=== PATIENT | female | born 1970 | race Caucasian/White ===

== ENCOUNTER 2025-03-24 07:49 | Outpatient (CLI) | payer OTHER, SELFPAY ==
--- OUTSIDE RECORDS SUMMARY | 2025-03-24 07:54 | XMS_ITS | Continuity of Care Document ---
Author Organization [facility] Address [address] [facility] [place] [address] Assessment No assessment recorded. Plan of Treatment Reminders Order Date Submit Date Provider Last Modified By Organization Details Last Modified Time Details Appointments None recorded. Lab None recorded. Referral gastroente rologist referral 2024 025 [email or web address] 5 Ramu Marr MD, [address] [place] [address] , [address], [address], 5 14:41:28 Procedures None recorded. Surgeries None recorded. Imaging MAMMO, screening, bilateral 2024 025 lars Hoffman (Centralized Scheduling), [address] [place] [address] , [place], [address], 5 11:32:40 LDCT, chest, for lung cancer screening 2024 025 [facility], [address] [place] [address], [place], [address], 5 04:05:09 Medication Orders nicotine 21 mg/24 hr daily transderma l patch 2024 025 [facility], [address] [facility], [place], [address], 5 09:32:49 nicotine (polacrile x) 4 mg gum 2024 025 [facility] [address] [facility], [place], [address], 09:32:55 Patient TargetsNo targets recorded. Patient Instructions Encounter Date Encounter Id Patient Instructions Last Modified By Organization Details Last Modified Time 02/03/2025 [id number] mammogram: about this test [email or web address] Not available 02/03/2025 13:00:53 smoking cessatio n counseling, greater than 3 minutes up to 10 minutes* [email or web address] Not available 02/15/2025 17:31:24 All questions answered and pt/guardian satisfied with treatment plan. Call with changes RTC or ED if symptoms change or worsen Keep next interval checkup Cont. chronic meds as prescribed Chronic conditions are stable Discussed natural and expected course of this diagnosis and need to alert the office if symptoms do not follow expected course or if any worsens [email or web address] Not available 02/03/2025 13:02:19 Reason for Referral Dental Coordinator Referral for Screening for malignant neoplasm of colon Referring Physician: Glynn Shin, Family Medicine, Encounter Date: 02/03/2025 Results Created Date Observation Date Name Description Value Unit Range Abnormal Flag Note LastModifiedBy Organization Detail LastModifiedTime 03/18/20 25 03/18/2025 jose roberto cheung am No observ ation record ed. [address], [address], 03/18/2025 10:01:50 03/22/20 25 03/18/2025 jose roberto cheung am No observ ation record ed. [address], [address], 03/23/2025 08:10:00 Result Notes None recorded. Problems Name Problem SNOMED Code Status Onset Date Resolution Date Notes Provider Name and Address Organization Details Recorded Time Abnormal vaginal bleeding 450145569 Active Sanjay Posey, RN [address], [place], [address] , [facility] - [facility] 8 15:04:51 Acute posthemorr hagic anemia 212161436 Active Sanjay Posey RN [address], [place], [address] , [place] - [facility] 8 15:04:51 Disorder of intestine 58924525 Active 2016 Sanjay Posey RN [address], [place], [address] , [place] - [facility] 8 15:04:51 Acute sinusitis 00684352 Active 2023 Ciera Simpson APRN [address], [place], [address] , [place] - [facility] 4 10:40:09 Insect bite of upper limb 925011294 Active 2024 Glynn Shin PA-C [address], [place], [address] , [place] - [facility] 5 14:47:01 Tobacco dependence caused by cigarettes 3996479454613 9107 Active 2024 Glynn Shin PA-C [address], [place], [address] , [place] - [facility] 5 12:56:18 Vitamin D deficiency 37504745 Active 2024 Glynn Shin PA-C [address], [place], [address] , [place] - [facility] 5 13:04:39 Problem Notes None recorded. Procedures Surgical History Date Name Laterality Status Provider Name and Address Organization Details Recorded Time 0 Systolic B/P less than 130 mm Hg completed Ly Arnoldo [place] - [facility] 09/05/2020 16:01:43 0 Diastolic B/P 80-89 mm Hg completed Ly Arnoldo [place] - [facility] 09/05/2020 16:01:47 9 Endometrial Biopsy completed Anne Marie Metcalf MD [address], [place], [address], [place] - [facility] 12/12/2018 10:06:14 9 Endometrial Biopsy completed Amanda Rivas [place] - [facility] 12/18/2018 08:01:39 8 Dilation and Curettage, sharp completed Amanda Rivas [place] - [facility] 09/08/2018 13:52:53 8 Date of Last Pap Smear completed Amanda Rivas [place] - [facility] 12/17/2017 15:07:55 2 Tubal Ligation completed Amanda Rivas [place] - [facility] 12/13/2017 14:28:36 Surgical revision intestine completed Earlene Branham [place] - [facility] 10/25/2016 16:32:38 Imaging Results None recorded. Procedure Notes None recorded. Medical Equipment None Reported. Allergies No known drug allergies Medications Name Sig Start Date Stop Date Status Note LastModified by Organization Details LastModified Time doxycycli ne hyclate 100 mg capsule TAKE ONE (1) CAPSULE TWICE A DAY BY ORAL ROUTE FOR 10 DAYS. 02/03 completed Not Available Not Available Not Available azithromy isis 250 mg tablet TAKE TWO (2) TABLETS (500 MG) BY ORAL ROUTE ONCE DAILY FOR ONE (1) DAY THEN ONE (1) TABLET (250 MG) BY ORAL ROUTE ONCE DAILY FOR FOUR (4) DAYS 01/15 completed Not Available Not Available Not Available valacyclo vir 1 gram tablet Take 1 tablet 3 times a day by oral route for 7 days. 06/10 completed Not Available Not Available Not Available Keflex 500 mg capsule Take 1 capsule every 6 hours by oral route for 10 days. 12/13 completed Not Available Not Available Not Available triamcino lone acetonide 0.1 % topical cream APPLY A THIN LAYER TO THE AFFECTED AREA(S) BY TOPICAL ROUTE TWO (2) TIMES PER DAY 03/18 completed Not Available Not Available Not Available Tessalon Perles 100 mg capsule Take 1 capsule 3 times a day by oral route for 10 days. 12/13 completed Not Available Not Available Not Available amoxicill in 875 mg tablet TAKE 1 TABLET BY MOUTH TWICE DAILY FOR 10 DAYS 06/10 completed Not Available Not Available Not Available nicotine (polacril ex) 4 mg gum CHEW ONE (1) PIECE OF GUM EVERY TWO (2) HOURS BY ORAL ROUTE NEEDED. 03/18 completed Not Available Not Available Not Available Keflex 250 mg capsule take 1 capsule by oral route TID 10/25 completed Keflex 250 mg oral capsule; Prescrib e Status: Prescrib ed on: 09/02/20 13 3:05PM;U ser: [email or web address];P harmacyV erified: 09/02/20 13 3:05PM Not Available Not Available Not Available Lasix 20 mg tablet Take 1 tablet every day by oral route for 3 days. 2024 active Not Available Not Available Not Avai lable ferrous sulfate 325 mg (65 mg iron) tablet Take 1 tablet twice a day by oral route. 06/17 completed Not Available Not Available Not Available Adelina-D 12 Hour 60 mg-120 mg tablet,ex tended release take 1 tablet by oral route 2 times per day for 7 days 09/09 completed Adelina- D 12 Hour 60-120 mg oral tablet extended release 12 hr;Presc ribe Status: Prescrib ed on: 09/02/20 13 3:05PM;U ser: [email or web address];E st. Completi on: 09/09/20 13;Pharm acyVerif ied: 09/02/20 13 3:05PM Not Available Not Available Not Available naproxen 500 mg tablet,de layed release Take 1 tablet twice a day by oral route for 30 days. 2017 active Not Available Not Available Not Avai lable nicotine 21 mg/24 hr daily transderm al patch APPLY ONE (1) PATCH EVERY DAY FOR SIX (6) WEEKS, THEN APPLY 14 MG PATCH EVERY DAY FOR TWO (2) WEEKS, THEN APPLY 7 MG PATCH EVERY DAY FOR TWO (2) WEEKS.ST OP CIGARETT E USE AT ONSET OF PATCH USE. 03/18 completed Not Available Not Available Not Available megestrol 40 mg tablet Take 1 tablet twice a day by oral route. 07/27 completed Not Available Not Available Not Available Provera 10 mg tablet Take 1 tablet every day by oral route for 10 days. 06/17 completed Not Available Not Available Not Available ergocalci ferol (vitamin D2) 1,250 mcg (50,000 unit) capsule TAKE ONE (1) CAPSULE EVERY WEEK BY ORAL ROUTE DIRECTED . active Not Available Not Available No t Available methylpre dnisolone 4 mg tablets in a dose pack TAKE DIRECTED FOR A DOSE PACK 01/15 completed Not Available Not Available Not Available megestrol 20 mg tablet 07/27 completed Not Available Not Available Not Available naproxen 500 mg tablet 07/27 completed Not Available Not Available Not Available amoxicill in 875 mg-potass ium clavulana te 125 mg tablet 10/31 completed Not Available Not Available Not Available Phenergan -Codeine 1 tsp qid 10/25 completed Phenerga n-Codein e 4 ounces;R ecorded Status: Recorded on: 09/02/20 13 3:04PM;U ser: [email or web address];I ndicatio n: - (-5) Not Available Not Available Not Available rifampin one bid 09/02 completed rifampin 300 mg.;Joaquin rded Status: Recorded on: 07/21/20 12 3:48PM;D iscontin ued Status: Disconti nued on: 09/02/20 13 3:04PM;U ser: ira; Est. Completi on: 07/26/20 12;Indic ation: inf - (-5) Not Available Not Available Not Available Celexa one dailly 11/16 completed celexa 20 mg.;Joaquin rded Status: Recorded on: 09/17/20 14 8:47PM;U ser: ira; Est. Completi on: 11/16/19 15;Indic ation: depressi on - (-5) Not Available Not Available Not Available Xanax one tid prn 09/27 completed xanax .5 mg.;Joaquin rded Status: Recorded on: 09/17/20 14 8:47PM;U ser: ira; Est. Completi on: 09/27/20 14;Indic ation: tension - (-5) Not Available Not Available Not Available Ortho-Cyc jeffery (28) 06/17 completed Not Available Not Available Not Available Doxycycli ne one bid 09/02 completed doxycycl ine 100 mg.;Joaquin rded Status: Recorded on: 07/21/20 12 3:48PM;D iscontin ued Status: Disconti nued on: 09/02/20 13 3:04PM;U ser: ira; Est. Completi on: 07/31/20 12;Indic ation: cell - (-5) Not Available Not Available Not Available Vitals Date Recorded Body height Body mass index (BMI) Body weight Heart rate Oxygen saturation Oxygen saturation in Arterial blood by Pulse oximetry Systolic blood pressure Diastolic blood pressure Provider Name and Address Organization Details Last Updated DateTime 5 170.18 cm 37 kg/m2 227875. 8 g 83 /min 96 % 96 % 124 mm[Hg] 78 mm[Hg] Steffany Gwendolyn [place] - [facility] 5 11:49:29 Social History Question Answer Notes LastModified by [employer] ion Details LastModified Time Tobacco Smoking Status Current Every Day Smoker Earlene Branham ethan [place] - [facility] 10/25/2016 16:32:01 Able To Swim? Yes Information not available 10/25/2016 Do You Wear A Helmet When Biking? No Information not available 10/25/2016 Are You Blind Or Do You Have Difficulty Seeing? No Information not available 10/25/2016 What Is Your Level Of Caffeine Consumption? Occasional Information not available 10/25/2016 Are You Deaf Or Do You Have Serious Difficulty Hearing? No Information not available 10/25/2016 What Type Of Diet Are You Following? REGULAR Information not available 10/25/2016 What Is The Highest Grade Or Level Of School You Have Completed Or The Highest Degree You Have Received? [id number] Information not available 12/13/2017 How Many Days Of Moderate To Strenuous Exercise, Like A Brisk Walk, Did You Do In The Last 7 Days? 1 Information not available 12/13/2017 On Those Days That You Engage In Moderate To Strenuous Exercise, How Many Minutes, On Average, Do You Exercise? 1 Information not available 12/13/2017 How Hard Is It For You To Pay For The Very Basics Like Food, Housing, Medical Care, And Heating? 1 Information not available 12/13/2017 Hard Of Hearing Or Deaf In One Or Both Ears? No Information not available 10/25/2016 Legally Blind In One Or Both Eyes? No Information no t available 10/25/2016 Live Alone Or With Others? With Others Information not available 06/17/2018 What Was The Date Of Your Most Recent Tobacco Screening? 03/18/2025 Information not available 03/18/2025 What Is Your Relationship Status? Information not available 10/25/2016 Seat Belts Used Routinely Yes Information not available 10/25/2016 Are You Sexually Active? Yes Information not available 10/25/2016 How Much Tobacco Do You Smoke? 1 PPD Information not available 03/18/2025 Has Tobacco Cessation Counseling Been Provided? Yes Information not available 06/10/2024 On What Date Was Tobacco Cessation Counseling Provided? 03/18/2025 Information not available 03/18/2025 How Many Years Have You Smoked Tobacco? 30 Information not available 12/13/2017 Do You Have Difficulty Walking Or Climbing Stairs? No Information not available 10/25/2016 Sex: Female Functional Status Question Answer Note LastModified by Organizat ion Details LastModified Time Do you use any illicit or recreational drugs? No Information not available 06/10/2024 Do you or have you ever used any other forms of tobacco or nicotine? No Information not available 06/10/2024 What is your level of alcohol consumption? Occasional Information not available 10/25/2016 Are you currently employed? Yes Information not available 10/25/2016 Do you have difficulty doing errands alone? No Information not available 10/25/2016 Are you able to care for yourself? Yes Information n ot available 10/25/2016 Do you have difficulty dressing or bathing? No Information not available 10/25/2016 Mental Status Question Answer Note LastModified by Organization D etails LastModified Time Do you feel stressed (tense, restless, nervous, or anxious, or unable to sleep at night)? 1 Information not available 12/13/2017 Do you have difficulty concentrating, remembering or making decisions? No Information no t available 10/25/2016 Family History Relationship Description Onset Age of this Age Resolved Age Notes LastModified by Organization Details LastModified Time Father Congestive heart failure Not available 2016 16:31:42 Father Type 2 diabetes mellitus Not available 2016 16:31:53 Mother Type 2 diabetes mellitus Not available 2016 16:31:53 Medical History Condition Response Pancreatitis N Other N Atrial Fibrillation N congenital heart disease N Blood Diseases N Hyperthyroidism N Rheumatoid arthritis N Blood Transfusion N Erectile Dysfunction N amputation N Skin Lesions N Depression N Pneumonia N Incontinence N Murmur N Edema N Alzheimer's Disease N Migraine Headaches N Tobacco Abuse N Anxiety Disorder N Hemorrhoids N Obesity N Vision or Eye Problems N Restless Leg Syndrome N Arthritis N Polyps N Infertility N Carpal Tunnel N Acid Reflux (GERD) N Cancer N Varicosities N Stroke N Tendonitis N Crohn's Disease N Hypercholesterolemia N Skin Cancer N Headaches N Fibromyalgia N Irritable Bowel Syndrome N Anal Fissure N Kidney Disease N Heart Problems N Hospitalizations N Gallstones N Kidney or Bladder Problems N Goiter N Acne N Eating Disorder N Crabtree's Esophagus N Hypertriglyceridemia N Constipation N Embolism N Vitamin B12 Deficiency N Deviated Septum N AIDS/HIV N Myocardial Infarction N Asthma N Mitral Valve Disorders N Vertigo N Hepatitis N Thyroid Cancer N Neuropathy N History of DVT N Herniated Disc N Chicken Pox N Von Willebrands Disease N Thrombophilias N Breast Cancer N Hernia N Plantar Fasciitis N Hypothyroidism N Lung Disease N Defects or Inherited Disease N Breast Problem N Ovarian Cyst N Anesthesia Complications N Testosterone Deficiency N Interstitial Cystitis N Congenital Anomalies N Hypoglycemia N Blood clot N Vitamin D Deficiency N Cellulitis N Endometriosis N Bladder or Kidney Problems N Fracture N Schizophrenia N Panic Disorder N Concussion N Spina Bifida N Osteoarthritis N Parkinson's Disease N Disc Protrusion N STI N Esophagitis N Angina N Thyroid Problems N GI Problems N ADD/ADHD N Anemia N Multiple Sclerosis N Abnormal PAP N Lumbago N Mental Illness N Psychiatric Illness N Ovarian Cancer N Diabetes N Degenerative Disc Disease N Seizures/Epilepsy N Syncope N Hyperlipidemia N Insomnia N Eczema N Abuse/Domestic Violence N Attention Deficient Disorder N Dementia N Ulcerative colitis N Cerebrovascular Disease N Depression N Guillain-Rush N Sleep Apnea N Aneurysm N Bronchitis N Heart Disease N Suicidal Ideation N Pre-Eclampsia N Hypertension N Osteoporosis N Gynecological History Statement/Question Response Abnormal Pap N Date of Last Mammogram Flow Moderate Date of LMP 11/11/2017 On BCP's at Conception? N Post Menopausal Bleeding N STIs/STDs N HPV Vaccine N Duration of Flow (days) 4 Current Control Method Tubal Ligat ion Age at Menarche 15 Age at First Child 25 Date of Last Colonoscopy Frequency of Cycle (Q days) 28 Most Recent Bone Density Sexually Active? Y Menses Monthly N Date of Last Pap Smear 12/13/2017 Sexual Problems? N LMP Approximate Hormone Replacement Therapy N Obstetrics History GPAL:G 5 P 5 0 0 4 Type Value Full Term 5 Living 4 Total 5 Past Encounters Encounter ID Performer Location Encounter Start Date Encounter Closed Date Diagnosis/Indication Diagnosis SNOMED-CT Code Diagnosis ICD10 Code Diagnosis Note [id number] Glynn Shin PA-C [facility] [address] [place], [place] [address] [place] [address] 01/15/2025 14:00:28 01/15/2025 14:46:10 Insect bite of upper limb 264089431 S40.261A W57.XXXA Discussed supportive care with patient. Advised to drink plenty of fluids and fluids containing electrolyt es. Try to get plenty of rest. Can take OTC pain medication such as tylenol or ibuprofen (dosed based on weight for pediatric patients) as needed to relieve fever, headache, or body aches. If patient should get worse call clinic or go to emergency room. Discussed expected course and cautioned signs and sxs to seek further treatment. [id number] Glynn Shin PA-C [facility] [address] [place], [place] [address] [place] [address] 02/03/2025 11:32:52 02/03/2025 12:46:04 General examination of patient 530569773 Z00.00 Generally healthy and well developed individual presents for general exam with no acute complaints . Past medical history significan t for no contributi ng conditions . Discussed healthy diet and exercise. Health maintenanc e reveiwed with patient. Exercises education, guidance, and counseling 208677062 Z71.82 The patient was advised to continue a healthy diet and exercise regularly. Dietary ma nagement surveillance 916905738 Z71.3 Tobacco de pendence caused by cigarettes 7288670126 4490230 F17.210 does not want to use medication s with side effectswil l trial NRT and stop smoking Screening mammography 24 059331 Z12.31 Screening for malignant neoplasm of colon 806792345 Z12.11 Insect bit e of upper limb 829174194 S40.261A W57.XXXA --improved Vitamin D deficiency 347 13287 E55.9 Health Concerns Section Related Observation LastModified by Organization Detai ls LastModified Time None Recorded Concern Status LastModified by Organization Details LastModified Time None Recorded Payers Encounter Date Sequence Insurance Name Policy Number Policy Alves Covered Member ID Alves Member ID Guarantor Name 02/03/2025 1 [employer] [facility] (MEDICAID HMO) Rachel Phipps [id number] Rachel Phipps Notes Date Note Type Note Provider Name and Address Organization Details Recorded Time 02/03/2025 text/html Patient presents to office for wellness visit. Patient denies any concerns this visit.labs:Please let patient know that labwork looks good with few exceptions;low vit D, would likely benefit from supplement and increased dietary [id number] 5.6, WNL Pt denies chest pain, SOA, difficulty eating or drinking, changes in bathroom habits, syncope/presyncop e, or any other concerns. Health Maintenance:Flu:C ovid:Tdap (Q10):Shingles (50+):Pneumonia (65+):Colon Cancer Screening (45+): open to Smoker: 1.5ppd, since 19yo, did quit for 7 years (55+ w/ >30pck yr hx) LDCT: open to [facility] smear:Mammogram (>40): dueDEXA scan (>65): LN:Patient presents to office with complaints of insect bite to right upper arm. Patient states woke this morning with bite present. Patient states area is tender to touch, itching and has hardened center. Patient states utilizes alcohol to relieve itching. 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 Has been spring cleaning. Denies concern for tick bite although causative insect is unknown. denies fever, N/V, petechial rash, arthralgias, systemic sick sxs. No other symptoms or concerns reported. Glynn Shin PA-C [address], [place], [address], [place] [facility] 02/03/2025 13:04:46 OBGyn Episode No OBEpisode recorded.
--- OUTSIDE RECORDS SUMMARY | 2025-03-24 07:54 | XMS_ITS | Continuity of Care Document ---
Author Organization Kadie Silva [facility] Address [address] [place] [address] Assessment No assessment recorded. Plan of Treatment Reminders Order Date Submit Date Provider Last Modified By Organization Details Last Modified Time Details Appointments None recorded. Lab CMP, serum or plasma 2024 025 [facility], [address], [place] [address], [place], [address], 5 11:07:49 CBC w/ auto diff 2024 025 [facility], [address], [place], [place], [address], 5 11:07:49 BNP (B-type natriuretic peptide), serum or plasma 2024 025 [facility], [address], [place] [address], [place], [address], 5 11:07:50 TSH + free T4, serum 2024 025 [facility], [address], [place] [address], [place], [address], 5 11:07:48 magnesium, serum or plasma 2024 025 [facility], [address], [place] [address], [place], [address], 5 11:07:51 urinalysis, dipstick 2024 025 [facility], [address] [place] [address], [address], 10:18:36 hepatic function panel, serum 2024 025 [facility], [address], [place] [address], [place], [address], 11:07:50 Referral None recorded. Procedures None recorded. Surgeries None recorded. Imaging electrocard iogram 2024 025 [facility], [address] [place] [address], [address], 10:01:43 US, echocardiog dutch 2024 025 [facility] [address], [place], [address], 09:37:28 Medication Orders None recorded. Patient TargetsNo targets recorded. Patient Instructions Encounter Date Encounter Id Patient Instructions Last Modified By Organization Details Last Modified Time 03/18/2025 [id number] learning about healthy weight efryman Not available 03/18/2025 09:41:13 body mass index: care instructions [email or web address] Not available 03/18/2025 09:41:13 Reason for Referral None Reported. Results Created Date Observation Date Name Description Value Unit Range Abnormal Flag Note LastModifiedBy Organization Detail LastModifiedTime 03/18/2003/18/2025 urina lysis , dipst ick Leukocytes Negati ve Not Available [address], [address], 03/18/2025 09:40:29 03/18/20 25 03/18/2025 urina lysis , dipst ick Nitrite negati ve Not Available [address], [address], 03/18/2025 09:40:29 03/18/20 25 03/18/2025 urina lysis , dipst ick Urobilinogen .2 Not Available V[address]ctor [address], [address], 03/18/2025 09:40:29 03/18/20 25 03/18/2025 urina lysis , dipst ick Protein Negati ve Not Available [address], [address], 03/18/2025 09:40:29 03/18/20 25 03/18/2025 urina lysis , dipst ick pH 6.0 Not Available [address], [address], 03/18/2025 09:40:29 03/18/20 25 03/18/2025 urina lysis , dipst ick Blood Negati ve Not Available [address], [address], 03/18/2025 09:40:29 03/18/20 25 03/18/2025 urina lysis , dipst ick Specific [place] 1.010 Not Available [address], [address], 03/18/2025 09:40:29 03/18/20 25 03/18/2025 urina lysis , dipst ick Ketone Negati ve Not Available [address], [address], 03/18/2025 09:40:29 03/18/20 25 03/18/2025 urina lysis , dipst ick Bilirubin Negati ve Not Available [address], [address], 03/18/2025 09:40:29 03/18/20 25 03/18/2025 urina lysis , dipst ick Glucose Negati ve Not Available [address], [address], 03/18/2025 09:40:29 03/18/20 25 03/18/2025 urina lysis , dipst ick Appearance Clear Not Available [address], [address], 03/18/2025 09:40:29 03/18/20 25 03/18/2025 urina lysis , dipst ick Color Dark Yellow Not Available [address], [address], 03/18/2025 09:40:29 03/18/20 25 03/18/2025 elect rocar diogr am No observ ation record ed. [email or web address], [address], 03/18/2025 10:01:50 03/22/20 25 03/18/2025 elect rocar diogr am No observ ation record ed. [email or web address], [address], 03/23/2025 08:10:00 Result Notes None recorded. Problems Name Problem SNOMED Code Status Onset Date Resolution Date Notes Provider Name and Address Organization Details Recorded Time Abnormal vaginal bleeding 749458419 Active Sanjay Posey RN [address], [place], [address] , [facility] - [facility] 8 15:04:51 Acute posthemorr hagic anemia 559935834 Active Sanjay Posey RN [address], [place], [address] , [facility] - [facility] 8 15:04:51 Disorder of intestine 96114185 Active 2016 Sanjay Posey RN [address], [place], [address] , [place] - [facility] 8 15:04:51 Acute sinusitis 55003928 Active 2023 Ciera Simpson APRN [address], [place], [address] , [place] - [facility] 4 10:40:09 Insect bite of upper limb 437993244 Active 2024 Glynn Shin PA-C [address], [place], [address] , [place] - [facility] 5 14:47:01 Tobacco dependence caused by cigarettes 6230725588683 9107 Active 2024 Glynn Shin PA-C [address], [place], [address] , [place] - [facility] 5 12:56:18 Vitamin D deficiency 28676674 Active 2024 Glynn Shin PA-C [address], [place], [address] , [place] - [facility] 5 13:04:39 Problem [...] Anne Marie Metcalf MD [address], [place], [address], [place] - [facility] 12/12/2018 10:06:14 9 Endometrial [...] 60-120 mg oral tablet extended release 12 hr;Pres ribe Status: Prescrib ed on: 09/02/20 13 [...] saturation in Arterial blood by Pulse oximetry Respiratory rate Systolic blood pressure Diastolic blood pressure Provider Name and Address Organization Details Last Updated DateTime 5 170.18 cm 38.4 kg/m2 955987. 83 g 80 /min 95 % 95 % 18 /min 140 mm[Hg] 90 mm[Hg] Ciera Rios [place] - [facility] 5 09:09:55 Social History Question Answer Notes LastModified by Organizat ion Details LastModified Time Tobacco Smoking Status Current Every Day Smoker Earlene long [place] - [facility] 10/25/2016 16:32:01 Able To [...] Or The Highest Degree You Have Received? LD08976-5 Information not available 12/13/2017 How Many Days [...] N Restless Leg Syndrome N Arthritis N Infertility N Polyps N Carpal Tunnel N Acid Reflux (GERD) N Cancer N Stroke N Varicosities N Tendonitis N Crohn's Disease N Hypercholesterolemia N Skin Cancer N Fibromyalgia N Headaches N Anal Fissure N Irritable Bowel Syndrome N Kidney Disease N Heart Problems N [...] Bladder or Kidney Problems N Fracture N Panic Disorder N Schizophrenia N Concussion N Spina Bifida N Osteoarthritis N Parkinson's Disease N Disc Protrusion N STI N Esophagitis N Angina N Thyroid Problems N GI Problems N ADD/ADHD N Anemia N Multiple Sclerosis N Abnormal PAP N Lumbago N Mental Illness N Psychiatric Illness N Diabetes N Ovarian Cancer N Degenerative Disc Disease N Seizures/Epilepsy N Hyperlipidemia N Syncope N Insomnia N Eczema N Abuse/Domestic Violence N Attention Deficient Disorder N Dementia N Ulcerative colitis N Cerebrovascular Disease N Depression N Guillain-[place] N Sleep Apnea N Aneurysm N Bronchitis N Heart Disease N Hypertension N Pre-Eclampsia N Suicidal Ideation N Osteoporosis N Gynecological History Statement/Question Response [...] SNOMED-CT Code Diagnosis ICD10 Code Diagnosis Note [id number] Kobi Healy APRN [facility] [address] [place] [address] 03/18/2025 08:58:51 03/18/2025 09:59:07 Body mass index 30+ - obesity 719143795 Z68.38 38.4 Obesity 159030809 E66.9 Edema of l ower extremity 286093857 R60.0 if worsening or more symptoms go to ed Health Concerns Section Related Observation LastModified by Organization Detai ls LastModified Time None Recorded Concern Status LastModified by Organization Details LastModified Time None Recorded Payers Encounter Date Sequence Insurance Name Policy Number Policy Alves Covered Member ID Alves Member ID Guarantor Name 03/18/2025 1 [facility] Rachel Phipps [id number] Rachel Phipps Notes Date Note Type Note Provider Name and Address Organization Details Recorded Time 03/18/2025 text/html 54 yr old female presented for swelling of bilateral lower legs. She says they have been swelling for the last 2-3 weeks. She has gained 9lb in one month, denies soa. Kobi Healy APRN [address], [place], [address], [place] - [facility] 03/18/2025 09:59:39 OBGyn Episode No OBEpisode recorded.
--- OUTSIDE RECORDS SUMMARY | 2025-03-24 07:54 | XMS_ITS | Data Portability ---
Author Organization Critical access hospital Address [address] [place] [address] Assessment Encounter Date Assessment Date Assessment LastModified by Organization Details LastModified Time 10/31/2021 10/31/2021 Service was provided using telemedicine. The patient verbally consents to virtual services and the consent is documented in the medical record prior to using the service. Patient is located at car in [facility] Provider is located at medical clinic. Names and roles of all persons participating in telemedicine services include:Rachel Phipps, jennifer and MD vinod Ricci Not available 10/31/2021 14:17:41 Plan of Treatment Reminders Order Date Submit Date Provider Last Modified By Organization Details Last Modified Time Details Appointments None recorded. Lab CMP, serum or plasma 2024 025 [facility], [address], [address], [place], [address], 11:07:49 CBC w/ auto diff 2024 025 [facility], [address], [address], [place], [address], 5 11:07:49 BNP (B-type natriureti c peptide), serum or plasma 2024 025 [facility], [address], [address], [place], [address], 5 11:07:50 TSH + free T4, serum 2024 025 KHRIS [facility], [address], [address], [place], [address], 5 11:07:48 magnesium, serum or plasma 2024 025 [facility], [address], [address], [place], [address], 5 11:07:51 urinalysis , dipstick 2024 025 [facility], [address] [place], [address], 5 10:18:36 hepatic function panel, serum 2024 025 [facility], [address], [address], [place], [address], 5 11:07:50 rapid SARS CoV + SARS CoV 2 Ag, QL IA, respirator y specimen [address], [address], [place], [address], 4 14:02:17 rapid flu (A+B) 2021 022 [email or web address], [address] [place] [address] , [place], [address], 2 14:43:58 SARS CoV 2 RNA (COVID-19) , QL, leather skinner-PCR, respirator y specimen 2021 022 [facility]IS [facility], [address], [address], [place], [address], 2 04:08:23 Referral gastroente rologist referral 2024 025 [email or web address] 5 Ramu Marr MD, [address] [place] [address] , [address], [place], [address], 5 14:41:28 Procedures None recorded. Surgeries None recorded. Imaging electrocar diogram 2024 025 [facility], [address] [facility], [place], [address], 5 10:01:43 US, echocardio gram 2024 025 [facility] (Scheduling), [address], [place], [address], 5 09:37:28 MAMMO, screening, bilateral 2024 025 [facility] [address] [place] [address] , [place], [address], 5 11:32:40 LDCT, chest, for lung cancer screening 2024 025 [facility], [address] [facility], [place], [address], 5 04:05:09 Medication Orders nicotine 21 mg/24 hr daily transderma l patch 2024 025 [facility], [address] [facility] [address], [place], [address], 5 09:32:49 nicotine (polacrile x) 4 mg gum 2024 025 [facility], [address], [place], [address], 5 09:32:55 doxycyclin e hyclate 100 mg capsule 2024 025 [facility], [address], [place], [address], 5 12:13:26 triamcinol one acetonide 0.1 % topical cream [address], [address], 5 09:33:13 Medrol (Bradley) 4 mg tablets in a dose pack [email or web address], [address], 5 14:12:36 Zithromax Z-Bradley 250 mg tablet [address], [address], 5 14:21:17 Patient TargetsNo targets recorded. Patient Instructions Encounter Date Encounter Id Patient Instructions Last Modified By Organization Details Last Modified Time 10/31/2021 [id number] smoking cessatio n counseling, greater than 3 minutes up to 10 minutes* [email or web address] Not available 10/31/2021 14:43:58 Plan for next steps: Rest and fluids OTC's to use reviewed. Discussed diagnosis of viral infection and what to expect Will call or RTC if no improvement in 7-10 days, or if symptoms worsen [email or web address] Not available 10/31/2021 14:44:56 Due to the natur e of telemedicine the ability to do a physical assessment was limited to what can be accomplished by patient directed video conferencing. Those limits are understood by the patient and myself. Impression is based on history, available information and physical findings accomplished with video assistance. Chronic disease/problem list/medication list reviewed and updated where indicated. Discussed diagnosis, plan including risks, benefits and options of treatment. PMH, FHx, SHx, Surgical Hx and preventive care review were addressed as documented today as part of this visit. Medication list was reviewed and adjusted as indicated. Medication requiring a refill was addressed. Risk and benefits of any new medications were discussed and all questions answered. Advised to call for new, worsening or persistent symptoms. Level of patient risk was of low complexity due to the documented nature of presentation, the information assessment required and the nature of the development of an evaluation and treatment plan as documented. [email or web address] Not available 10/31/2021 14:44:58 06/10/2024 [id number] smoking cessatio n counseling, greater than 3 minutes up to 10 minutes* Not available 06/10/2024 10:05:52 learning about healthy weight Not available 06/10/2024 14:02:17 body mass index: care instructions Not available 06/10/2024 14:02:17 colon cancer screening: care instructions Not available 06/10/2024 10:40:42 Advised to take medication as directed Discussed importance of hydration and rest Tylenol for pain or fever To call office for questions, concerns or issues Not available 06/10/2024 10:42:32 01/15/2025 [id number] All questions answered and pt/guardian satisfied with treatment plan. Call with changes RTC or ED if symptoms change or worsen Keep next interval checkup Cont. chronic meds as prescribed Chronic conditions are stable Discussed natural and expected course of this diagnosis and need to alert the office if symptoms do not follow expected course or if any worsens [email or web address] Not available 01/15/2025 14:49:36 02/03/2025 [id number] mammogram: about this test [email or web address] Not available 02/03/2025 13:00:53 smoking cessatio n counseling, greater than 3 minutes up to 10 minutes* Not available 02/15/2025 17:31:24 All questions answered and pt/guardian satisfied with treatment plan. Call with changes RTC or ED if symptoms change or worsen Keep next interval checkup Cont. chronic meds as prescribed Chronic conditions are stable Discussed natural and expected course of this diagnosis and need to alert the office if symptoms do not follow expected course or if any worsens [email or web address] Not available 02/03/2025 13:02:19 03/18/2025 [id number] learning about healthy weight [email or web address] Not available 03/18/2025 09:41:13 body mass index: care instructions [email or web address] Not available 03/18/2025 09:41:13 Reason for Referral College Admissions Counselor Referral for Screening for malignant neoplasm of colon Referring Physician: Glynn Shin, Family Medicine, Encounter Date: 02/03/2025 Results Created Date Observation Date Name Description Value Unit Range Abnormal Flag Note LastModifiedBy Organization Detail LastModifiedTime 10/31/19 22 11/02/2021 SARS- COV-2 , ALEJANDRO sars-cov-2, ALEJANDRO Not Detect ed not detect ed This nucle ic acid ampli ficat ion test was devel oped and its perfo rmanc e jayjay cteri stics deter mined by [facility] at[facility]. Nucle ic acid ampli ficat ion tests inclu de RT-PC R and TMA. This test has not been FDA clear ed or appro adrienne. This test has been autho rized by FDA under an Emerg ency Use Autho rizat ion (EUA) . This test is only autho rized for the durat ion of time the decla ratio n that circu mstan oziel exist justi fying the autho rizat ion of the emerg ency use of in vitro diagn ostic tests for detec tion of SARS- CoV-2 virus and/o r diagn osis of COVID -19 infec tion under secti on 564(b )(1) of the Act, 21 U.S.C . 360bb b-3(b ) (1), unles s the autho rizat ion is termi nated or revok ed soone r. When diagn ostic testi ng is negat arvind, the possi bilit y of a false negat arvind resul t shoul d be consi dered in the gabrielle xt of a patie nt's recen t expos ures and the prese nce of clini monserrat signs and sympt oms consi stent with COVID -19. An indiv idual witho ut sympt oms of COVID -19 and who is not audrey ing SARS- CoV-2 virus would expec t to have a negat arvind (not detec emil) resul t in this assay . Not Available [facility] ([facility]) [address] [facility], [place], [address], 11/02/2021 04:08:23 10/31/1911/0211/02/2021 SARS- COV-2 , ALEJANDRO sars-cov-2, ALEJANDRO 2 day tat Perfor med Not Available [facility] ([facility]) [address] [place], [address], 11/02/2021 04:08:23 10/31/19 22 10/31/2021 rapid flu (A+B) Flu negati ve Not Available [facility] [address] [facility] , [place], [address], 10/31/2021 14:15:05 06/10/20 24 06/10/2024 rapid SARS CoV + SARS CoV 2 Ag, QL IA, respi rator y speci men SARS CoV antigen Negati ve Not Available Counts Include [address] [facility] [address], [place], [address], 06/10/2024 10:44:36 01/28/20 25 01/28/2025 TSH+F REE T4 TSH 2.670 uIU/m L 0.450- 4.500 normal Not Available [facility] ([facility]) [address] [place], [address], 01/28/2025 07:54:07 01/28/20 25 01/28/2025 TSH+F REE T4 T4,free(dire ct) 0.90 NG/dL 0.82-1 .77 normal Not Available [facility] ([facility]) [address] [place], [address], 01/28/2025 07:54:07 01/28/20 25 01/28/2025 CBC WITH DIFFE RENTI AL/PL ATELE T WBC 9.1 x10e3 /uL 3.4-10 .8 normal Not Available [facility] ([facility]) [address] [place], [address], 01/28/2025 07:54:07 01/28/20 25 01/28/2025 CBC WITH DIFFE RENTI AL/PL ATELE T RBC 5.00 x10e6 /uL 3.77-5 .28 normal Not Available [facility] ([facility]) [address] [place], [address], 01/28/2025 07:54:07 01/28/20 25 01/28/2025 CBC WITH DIFFE RENTI AL/PL ATELE T hemoglobin 14.4 g/dL 11.1-1 5.9 normal Not Available [facility] ([facility]) [address] [place], [address], 01/28/2025 07:54:07 01/28/2001/28/2025 CBC WITH DIFFE RENTI AL/PL ATELE T hematocrit 44.7 % 34.0-4 6.6 normal Not Available [facility] ([facility]) [address] [place], [address], 01/28/2025 07:54:07 01/28/2001/28/2025 CBC WITH DIFFE RENTI AL/PL ATELE T MCV 89 fL 79-97 normal Not Available [facility] ([facility]) [address] [place], [address], 01/28/2025 07:54:07 01/28/2001/28/2025 CBC WITH DIFFE RENTI AL/PL ATELE T MCH 28.8 pg 26.6-3 3.0 normal Not Available [facility] ([facility]) [address] [place], [address], 01/28/2025 07:54:07 01/28/2001/28/2025 CBC WITH DIFFE RENTI AL/PL ATELE T MCHC 32.2 g/dL 31.5-3 5.7 normal Not Available [facility] ([facility]) [address] [place], [address], 01/28/2025 07:54:07 01/28/20 01/28/2025 CBC WITH DIFFE RENTI AL/PL ATELE T RDW 12.6 % 11.7-1 5.4 Not Available [facility] ([facility]) [address] [facility], [place], [address], 01/28/2025 07:54:07 01/28/20 25 01/28/2025 CBC WITH DIFFE RENTI AL/PL ATELE T platelets 343 x10e3 /uL 150-45 0 normal Not Available [facility] ([facility]) [address] [facility], [place], [address], 01/28/2025 07:54:07 01/28/2001/28/2025 CBC WITH DIFFE RENTI AL/PL ATELE T neutrophils 71 % not estab. normal Not Available [facility] ([facility]) [address] [facility], [place], [address], 01/28/2025 07:54:07 01/28/2001/28/2025 CBC WITH DIFFE RENTI AL/PL ATELE T lymphs 18 % not estab. normal Not Available [facility] ([facility]) [address] [facility], [place], [address], 01/28/2025 07:54:07 01/28/2001/28/2025 CBC WITH DIFFE RENTI AL/PL ATELE T monocytes 7 % not estab. normal Not Available [facility] ([facility]) [address] [facility], [place], [address], 01/28/2025 07:54:07 01/28/2001/28/2025 CBC WITH DIFFE RENTI AL/PL ATELE T eos 3 % not estab. normal Not Available [facility] ([facility]) [address] [facility], [place], [address], 01/28/2025 07:54:07 01/28/20 25 01/28/2025 CBC WITH DIFFE RENTI AL/PL ATELE T basos 1 % not estab. normal Not Available [facility] ([facility]) [address] [facility], [place], [address], 01/28/2025 07:54:07 01/28/2001/28/2025 CBC WITH DIFFE RENTI AL/PL ATELE T immature cells ELECTRIC ARC WELDER Not Available [facility] ([facility]) [address] [facility], [place], [address], 01/28/2025 07:54:07 01/28/20 25 01/28/2025 CBC WITH DIFFE RENTI AL/PL ATELE T neutrophils (absolute) 6.5 x10e3 /uL 1.4-7. 0 normal Not Available [facility] ([facility]) [address] [facility], [place], [address], 01/28/2025 07:54:07 01/28/20 25 01/28/2025 CBC WITH DIFFE RENTI AL/PL ATELE T lymphs (absolute) 1.7 x10e3 /uL 0.7-3. 1 normal Not Available [facility] ([facility]) [address] [place], [address], 01/28/2025 07:54:07 01/28/20 25 01/28/2025 CBC WITH DIFFE RENTI AL/PL ATELE T monocytes(ab solute) 0.6 x10e3 /uL 0.1-0. 9 normal Not Available [facility] ([facility]) [address] [place], [address], 01/28/2025 07:54:07 01/28/20 25 01/28/2025 CBC WITH DIFFE RENTI AL/PL ATELE T eos (absolute) 0.2 x10e3 /uL 0.0-0. 4 normal Not Available [facility] ([facility]) [address] [place], [address], 01/28/2025 07:54:07 01/28/20 25 01/28/2025 CBC WITH DIFFE RENTI AL/PL ATELE T baso (absolute) 0.1 x10e3 /uL 0.0-0. 2 normal Not Available [facility] ([facility]) [address] [facility], [place], [address], 01/28/2025 07:54:07 01/28/20 25 01/28/2025 CBC WITH DIFFE RENTI AL/PL ATELE T immature granulocytes 0 % not estab. Not Available [facility] ([facility]) [address] [facility], [place], [address], 01/28/2025 07:54:07 01/28/20 25 01/28/2025 CBC WITH DIFFE RENTI AL/PL ATELE T immature grans (abs) 0.0 x10e3 /uL 0.0-0. 1 Not Available [facility] ([facility]) [address] [facility], [place], [address], 01/28/2025 07:54:07 01/28/20 25 01/28/2025 CBC WITH DIFFE RENTI AL/PL ATELE T NRBC ELECTRIC ARC WELDER Not Available [facility] ([facility]) [address] [facility], [place], [address], 01/28/2025 07:54:07 01/28/20 25 01/28/2025 CBC WITH DIFFE RENTI AL/PL ATELE T hematology comments: ELECTRIC ARC WELDER Not Available [facility] ([facility]) [address] [facility], [place], [address], 01/28/2025 07:54:07 01/28/20 25 01/28/2025 COMP. METAB OLIC PANEL (14) glucose 113 mg/dL 70-99 above high normal Not Available [facility] ([facility]) [address] [facility], [place], [address], 01/28/2025 07:54:08 01/28/20 25 01/28/2025 COMP. METAB OLIC PANEL (14) BUN 11 mg/dL 6-24 normal Not Available [facility] ([facility]) [address] [place], [address], 01/28/2025 07:54:08 01/28/20 25 01/28/2025 COMP. METAB OLIC PANEL (14) creatinine 0.70 mg/dL 0.57-1 .00 normal Not Available [facility] ([facility]) [address] [place], [address], 01/28/2025 07:54:08 01/28/20 25 01/28/2025 COMP. METAB OLIC PANEL (14) eGFR 104 mL/mi n/1.7 3 >59 normal Not Available [facility] ([facility]) [address] [facility] [place], [address], 01/28/2025 07:54:08 01/28/20 25 01/28/2025 COMP. METAB OLIC PANEL (14) BUN/creatini ne ratio 16 9-23 normal Not Available [facility] ([facility]) [address] [facility] [place], [address], 01/28/2025 07:54:08 01/28/20 25 01/28/2025 COMP. METAB OLIC PANEL (14) sodium 144 mmol/ L 134-14 4 normal Not Available [facility] ([facility]) [address] [facility] [place], [address], 01/28/2025 07:54:08 01/28/20 25 01/28/2025 COMP. METAB OLIC PANEL (14) potassium 5.0 mmol/ L 3.5-5. 2 normal Not Available [facility] ([facility]) [address] [facility] [place], [address], 01/28/2025 07:54:08 01/28/20 25 01/28/2025 COMP. METAB OLIC PANEL (14) chloride 107 mmol/ L 96-106 above high normal Not Available [facility] ([facility]) [address] [facility] [place], [address], 01/28/2025 07:54:08 01/28/20 25 01/28/2025 COMP. METAB OLIC PANEL (14) carbon dioxide, total 22 mmol/ L 20-29 normal Not Available [facility] ([facility]) [address] [facility] [place], [address], 01/28/2025 07:54:08 01/28/20 25 01/28/2025 COMP. METAB OLIC PANEL (14) calcium 9.3 mg/dL 8.7-10 .2 normal Not Available [facility] ([facility]) [address] [place], [address], 01/28/2025 07:54:08 01/28/20 25 01/28/2025 COMP. METAB OLIC PANEL (14) protein, total 6.4 g/dL 6.0-8. 5 normal Not Available [facility] ([facility]) [address] [place], [address], 01/28/2025 07:54:08 01/28/20 25 01/28/2025 COMP. METAB OLIC PANEL (14) albumin 4.1 g/dL 3.8-4. 9 normal Not Available [facility] ([facility]) [address] [facility] [place], [address], 01/28/2025 07:54:08 01/28/20 25 01/28/2025 COMP. METAB OLIC PANEL (14) globulin, total 2.3 g/dL 1.5-4. 5 Not Available [facility] ([facility]) [address] [facility] [place], [address], 01/28/2025 07:54:08 01/28/20 25 01/28/2025 COMP. METAB OLIC PANEL (14) bilirubin, total 0.4 mg/dL 0.0-1. 2 normal Not Available [facility] ([facility]) [address] [facility] [place], [address], 01/28/2025 07:54:08 01/28/20 25 01/28/2025 COMP. METAB OLIC PANEL (14) alkaline phosphatase 136 IU/L 44-121 above high normal Not Available [facility] ([facility]) [address] [place], [address], 01/28/2025 07:54:08 01/28/20 25 01/28/2025 COMP. METAB OLIC PANEL (14) AST (SGOT) 20 IU/L 0-40 normal Not Available [facility] ([facility]) [address] [place], [address], 01/28/2025 07:54:08 01/28/20 25 01/28/2025 COMP. METAB OLIC PANEL (14) ALT (SGPT) 22 IU/L 0-32 normal Not Available [facility] ([facility]) [address] [place], [address], 01/28/2025 07:54:08 01/28/20 25 01/28/2025 LIPID PANEL cholesterol, total 152 mg/dL 100-19 9 normal Not Available [facility] ([facility]) [address] [place], [address], 01/28/2025 07:54:09 01/28/20 25 01/28/2025 LIPID PANEL triglyceride s 94 mg/dL 0-149 normal Not Available [facility] ([facility]) [address] [place], [address], 01/28/2025 07:54:09 01/28/20 25 01/28/2025 LIPID PANEL HDL cholesterol 41 mg/dL >39 normal Not Available [facility] ([facility]) [address] [place], [address], 01/28/2025 07:54:09 01/28/20 25 01/28/2025 LIPID PANEL VLDL cholesterol monserrat 18 mg/dL 5-40 Not Available [facility] ([facility]) [address] [facility], [place], [address], 01/28/2025 07:54:09 01/28/2001/28/2025 LIPID PANEL LDL chol calc ([facility]) 93 mg/dL 0-99 Not Available [facility] ([facility]) [address] [facility], [place], [address], 01/28/2025 07:54:09 01/28/20 25 01/28/2025 LIPID PANEL LDL calc comment: ELECTRIC ARC WELDER Not Available [facility] ([facility]) [address] [facility], [place], [address], 01/28/2025 07:54:09 01/28/2001/28/2025 HEMOG LOBIN A1C hemoglobin A1C 5.6 % 4.8-5. 6 normal Predi abete s: 5.7 - 6.4 Diabe zacarias: >6.4 Glyce ean contr ol for adult s with diabe zacarias: <7.0 Not Available [facility] ([facility]) [address] [facility], [place], [address], 01/28/2025 07:54:09 01/28/2001/28/2025 VITAM IN D, 25-HY DROXY vitamin D, 25-hydroxy 19.6 NG/mL 30.0-1 00.0 below low normal Vitam in D defic iency has been defin ed by the Insti tute of Medic ine and an Endoc rine Socie ty pract ice guide line as a level of serum 25-OH vitam in D less than 20 ng/mL (1,2) . The Endoc rine Socie ty went on to furth er defin e vitam in D insuf ficie ncy as a level betwe en 21 and 29 ng/mL (2). 1. IOM (Inst itute of Medic ine). 2010. Dieta ry refer ence intak es for calci um and D. Tal nieves [place]: The [facility] Press . 2. Saji guillermo [place], Emanuel pedro [place], [place] off-F errar i MURILLO, et al. Evalu ation , treat ment, and preve ntion of vitam in D defic iency : an Endoc rine Socie ty clini monserrat pract ice guide line. JCEM. 2010; 96(7) :1911 -30. Not Available [facility] ([facility]) [address] [place], [address], 01/28/2025 07:54:10 03/18/20 25 03/19/2025 TSH+F REE T4 TSH 3.050 uIU/m L 0.450- 4.500 normal Not Available [facility] ([facility]) [address] [place], [address], 03/19/2025 11:07:48 03/18/20 25 03/19/2025 TSH+F REE T4 T4,free(dire ct) 0.90 NG/dL 0.82-1 .77 normal Not Available [facility] ([facility]) [address] [place], [address], 03/19/2025 11:07:48 03/18/20 25 03/19/2025 CBC WITH DIFFE RENTI AL/PL ATELE T WBC 9.3 x10e3 /uL 3.4-10 .8 normal Not Available [facility] ([facility]) [address] [place], [address], 03/19/2025 11:07:49 03/18/20 25 03/19/2025 CBC WITH DIFFE RENTI AL/PL ATELE T RBC 5.02 x10e6 /uL 3.77-5 .28 normal Not Available [facility] ([facility]) [address] [place], [address], 03/19/2025 11:07:49 03/18/20 25 03/19/2025 CBC WITH DIFFE RENTI AL/PL ATELE T hemoglobin 14.5 g/dL 11.1-1 5.9 normal Not Available [facility] ([facility]) [address] [place], [address], 03/19/2025 11:07:49 03/18/20 25 03/19/2025 CBC WITH DIFFE RENTI AL/PL ATELE T hematocrit 44.8 % 34.0-4 6.6 normal Not Available [facility] ([facility]) [address] [place], [address], 03/19/2025 11:07:49 03/18/20 25 03/19/2025 CBC WITH DIFFE RENTI AL/PL ATELE T MCV 89 fL 79-97 normal Not Available [facility] ([facility]) [address] [place], [address], 03/19/2025 11:07:49 03/18/20 25 03/19/2025 CBC WITH DIFFE RENTI AL/PL ATELE T MCH 28.9 pg 26.6-3 3.0 normal Not Available [facility] ([facility]) [address] [place], [address], 03/19/2025 11:07:49 03/18/20 25 03/19/2025 CBC WITH DIFFE RENTI AL/PL ATELE T MCHC 32.4 g/dL 31.5-3 5.7 normal Not Available [facility] ([facility]) [address] [place], [address], 03/19/2025 11:07:49 03/18/20 25 03/19/2025 CBC WITH DIFFE RENTI AL/PL ATELE T RDW 12.8 % 11.7-1 5.4 Not Available [facility] ([facility]) [address] [place], [address], 03/19/2025 11:07:49 03/18/20 25 03/19/2025 CBC WITH DIFFE RENTI AL/PL ATELE T platelets 329 x10e3 /uL 150-45 0 normal Not Available [facility] ([facility]) [address] [place], [address], 03/19/2025 11:07:49 03/18/20 25 03/19/2025 CBC WITH DIFFE RENTI AL/PL ATELE T neutrophils 69 % not estab. normal Not Available [facility] ([facility]) [address] [facility], [place], [address], 03/19/2025 11:07:49 03/18/20 25 03/19/2025 CBC WITH DIFFE RENTI AL/PL ATELE T lymphs 20 % not estab. normal Not Available [facility] ([facility]) [address] [facility], [place], [address], 03/19/2025 11:07:49 03/18/20 25 03/19/2025 CBC WITH DIFFE RENTI AL/PL ATELE T monocytes 7 % not estab. normal Not Available [facility] ([facility]) [address] [facility], [place], [address], 03/19/2025 11:07:49 03/18/20 25 03/19/2025 CBC WITH DIFFE RENTI AL/PL ATELE T eos 3 % not estab. normal Not Available [facility] ([facility]) [address] [facility], [place], [address], 03/19/2025 11:07:49 03/18/20 25 03/19/2025 CBC WITH DIFFE RENTI AL/PL ATELE T basos 1 % not estab. normal Not Available [facility] ([facility]) [address] [facility], [place], [address], 03/19/2025 11:07:49 03/18/20 25 03/19/2025 CBC WITH DIFFE RENTI AL/PL ATELE T immature cells ELECTRIC ARC WELDER Not Available [facility] ([facility]) [address] [facility], [place], [address], 03/19/2025 11:07:49 03/18/20 25 03/19/2025 CBC WITH DIFFE RENTI AL/PL ATELE T neutrophils (absolute) 6.4 x10e3 /uL 1.4-7. 0 normal Not Available [facility] ([facility]) [address] [place], [address], 03/19/2025 11:07:49 03/18/20 25 03/19/2025 CBC WITH DIFFE RENTI AL/PL ATELE T lymphs (absolute) 1.8 x10e3 /uL 0.7-3. 1 normal Not Available [facility] ([facility]) [address] [place], [address], 03/19/2025 11:07:49 03/18/20 25 03/19/2025 CBC WITH DIFFE RENTI AL/PL ATELE T monocytes(ab solute) 0.7 x10e3 /uL 0.1-0. 9 normal Not Available [facility] ([facility]) [address] [place], [address], 03/19/2025 11:07:49 03/18/20 25 03/19/2025 CBC WITH DIFFE RENTI AL/PL ATELE T eos (absolute) 0.3 x10e3 /uL 0.0-0. 4 normal Not Available [facility] ([facility]) [address] [place], [address], 03/19/2025 11:07:49 03/18/20 25 03/19/2025 CBC WITH DIFFE RENTI AL/PL ATELE T baso (absolute) 0.1 x10e3 /uL 0.0-0. 2 normal Not Available [facility] ([facility]) [address] [place], [address], 03/19/2025 11:07:49 03/18/20 25 03/19/2025 CBC WITH DIFFE RENTI AL/PL ATELE T immature granulocytes 0 % not estab. Not Available [facility] ([facility]) [address] [place], [address], 03/19/2025 11:07:49 03/18/20 25 03/19/2025 CBC WITH DIFFE RENTI AL/PL ATELE T immature grans (abs) 0.0 x10e3 /uL 0.0-0. 1 Not Available [facility] ([facility]) [address] [facility], [place], [address], 03/19/2025 11:07:49 03/18/20 25 03/19/2025 CBC WITH DIFFE RENTI AL/PL ATELE T NRBC ELECTRIC ARC WELDER Not Available [facility] ([facility]) [address] [facility], [place], [address], 03/19/2025 11:07:49 03/18/20 25 03/19/2025 CBC WITH DIFFE RENTI AL/PL ATELE T hematology comments: ELECTRIC ARC WELDER Not Available [facility] ([facility]) [address] [facility], [place], [address], 03/19/2025 11:07:49 03/18/20 25 03/19/2025 COMP. METAB OLIC PANEL (14) glucose 99 mg/dL 70-99 normal Not Available [facility] ([facility]) [address] [facility], [place], [address], 03/19/2025 11:07:49 03/18/20 25 03/19/2025 COMP. METAB OLIC PANEL (14) BUN 11 mg/dL 6-24 normal Not Available [facility] ([facility]) [address] [facility], [place], [address], 03/19/2025 11:07:49 03/18/20 25 03/19/2025 COMP. METAB OLIC PANEL (14) creatinine 0.68 mg/dL 0.57-1 .00 normal Not Available [facility] ([facility]) [address] [facility], [place], [address], 03/19/2025 11:07:49 03/18/20 25 03/19/2025 COMP. METAB OLIC PANEL (14) eGFR 105 mL/mi n/1.7 3 >59 normal Not Available [facility] ([facility]) [address] [place], [address], 03/19/2025 11:07:49 03/18/20 25 03/19/2025 COMP. METAB OLIC PANEL (14) BUN/creatini ne ratio 16 9-23 normal Not Available [facility] ([facility]) [address] [place], [address], 03/19/2025 11:07:49 03/18/20 25 03/19/2025 COMP. METAB OLIC PANEL (14) sodium 142 mmol/ L 134-14 4 normal Not Available [facility] ([facility]) [address] [place], [address], 03/19/2025 11:07:49 03/18/20 25 03/19/2025 COMP. METAB OLIC PANEL (14) potassium 4.0 mmol/ L 3.5-5. 2 normal Not Available [facility] ([facility]) [address] [place], [address], 03/19/2025 11:07:49 03/18/20 25 03/19/2025 COMP. METAB OLIC PANEL (14) chloride 107 mmol/ L 96-106 above high normal Not Available [facility] ([facility]) [address] [place], [address], 03/19/2025 11:07:49 03/18/20 25 03/19/2025 COMP. METAB OLIC PANEL (14) carbon dioxide, total 20 mmol/ L 20-29 normal Not Available [facility] ([facility]) [address] [place], [address], 03/19/2025 11:07:49 03/18/20 25 03/19/2025 COMP. METAB OLIC PANEL (14) calcium 8.7 mg/dL 8.7-10 .2 normal Not Available [facility] ([facility]) [address] [facility] [place], [address], 03/19/2025 11:07:49 03/18/20 25 03/19/2025 COMP. METAB OLIC PANEL (14) protein, total 6.6 g/dL 6.0-8. 5 normal Not Available [facility] ([facility]) [address] [facility] [place], [address], 03/19/2025 11:07:49 03/18/20 25 03/19/2025 COMP. METAB OLIC PANEL (14) albumin 4.2 g/dL 3.8-4. 9 normal Not Available [facility] ([facility]) [address] [facility] [place], [address], 03/19/2025 11:07:49 03/18/20 25 03/19/2025 COMP. METAB OLIC PANEL (14) globulin, total 2.4 g/dL 1.5-4. 5 Not Available [facility] ([facility]) [address] [facility] [place], [address], 03/19/2025 11:07:49 03/18/20 25 03/19/2025 COMP. METAB OLIC PANEL (14) bilirubin, total 0.2 mg/dL 0.0-1. 2 normal Not Available [facility] ([facility]) [address] [place], [address], 03/19/2025 11:07:49 03/18/20 25 03/19/2025 COMP. METAB OLIC PANEL (14) alkaline phosphatase 140 IU/L 44-121 above high normal Not Available [facility] ([facility]) [address] [facility] [place], [address], 03/19/2025 11:07:49 03/18/20 25 03/19/2025 COMP. METAB OLIC PANEL (14) AST (SGOT) 20 IU/L 0-40 normal Not Available [facility] ([facility]) [address] [facility], [place], [address], 03/19/2025 11:07:49 03/18/20 25 03/19/2025 COMP. METAB OLIC PANEL (14) ALT (SGPT) 21 IU/L 0-32 normal Not Available [facility] ([facility]) [address] [facility], [place], [address], 03/19/2025 11:07:49 03/18/20 25 03/19/2025 HEPAT IC FUNCT ION PANEL (7) bilirubin, direct 0.10 mg/dL 0.00-0 .40 normal Not Available [facility] ([facility]) [address] [facility], [place], [address], 03/19/2025 11:07:50 03/18/20 25 03/19/2025 B-TYP E NATRI URETI C PEPTI DE B-type natriuretic peptide 38.0 pg/mL 0.0-10 0.0 Sieme ns ADVIA [facility] XP metho dolog y Not Available [facility] ([facility]) [address] [facility], [place], [address], 03/19/2025 11:07:50 03/18/20 25 03/19/2025 MAGNE SIUM magnesium 2.3 mg/dL 1.6-2. 3 normal Not Available [facility] ([facility]) [address] [place], [address], 03/19/2025 11:07:51 03/18/20 25 03/18/2025 urina lysis , dipst ick Leukocytes Negati ve Not Available [address], [address], 03/18/2025 09:40:29 03/18/20 25 03/18/2025 urina lysis , dipst ick Nitrite negati ve Not Available [address], [address], 03/18/2025 09:40:29 03/18/20 25 03/18/2025 urina lysis , dipst ick Urobilinogen .2 Not Available [facility] [address], [address], 03/18/2025 09:40:29 03/18/20 25 03/18/2025 urina lysis , dipst ick Protein Negati ve Not Available [address], [address], 03/18/2025 09:40:29 03/18/20 25 03/18/2025 urina lysis , dipst ick pH 6.0 Not Available [address], [address], 03/18/2025 09:40:29 03/18/20 25 03/18/2025 urina lysis , dipst ick Blood Negati ve Not Available [address], [address], 03/18/2025 09:40:29 03/18/20 25 03/18/2025 urina lysis , dipst ick Specific [place] 1.010 Not Available [address], [address], 03/18/2025 09:40:29 03/18/20 25 03/18/2025 urina lysis , dipst ick Ketone Negati ve Not Available [address], [address], 03/18/2025 09:40:29 03/18/20 25 03/18/2025 urina lysis , dipst ick Bilirubin Negati ve Not Available [address], [address], 03/18/2025 09:40:29 03/18/20 25 03/18/2025 urina lysis , dipst ick Glucose Negati ve Not Available [address], [address], 03/18/2025 09:40:29 03/18/20 25 03/18/2025 urina lysis , dipst ick Appearance Clear Not Available [address], [address], 03/18/2025 09:40:29 03/18/20 25 03/18/2025 urina lysis , dipst ick Color Dark Yellow Not Available [address], [address], 03/18/2025 09:40:29 03/18/20 25 03/18/2025 elect rocar diogr am No observ ation record ed. [email or web address], [address], 03/18/2025 10:01:50 03/22/20 25 03/18/2025 elect rocar diogr am No observ ation record ed. [email or web address] [address], [address], 03/23/2025 08:10:00 Result Notes None recorded. Problems Name Problem SNOMED Code Status Onset Date Resolution Date Notes Provider Name and Address Organization Details Recorded Time Abnormal vaginal bleeding 571906003 Active Sanjay Posey RN [address], [place], [address] , [facility] - [facility] 8 15:04:51 Acute posthemorr hagic anemia 620924079 Active Sanjay Posey RN [address], [place], [address] , [facility] - [facility] 8 15:04:51 Disorder of intestine 08335217 Active 2016 Sanjay Posey RN [address], [place], [address] , [place] - [facility] 8 15:04:51 Acute sinusitis 60457579 Active 2023 Ciera Simpson APRN [address], [place], [address] , [place] - [facility] 4 10:40:09 Insect bite of upper limb 511591510 Active 2024 Glynn Shin PA-C [address], [place], [address] , [place] - [facility] 5 14:47:01 Tobacco dependence caused by cigarettes 9815548709284 9107 Active 2024 Glynn Shin PA-C [address], [place], [address] , [place] - [facility] 5 12:56:18 Vitamin D deficiency 71320435 Active 2024 Glynn Shin PA-C [address], [place], [address] , [place] - [facility] 5 13:04:39 Problem [...] Anne Marie Metcalf MD [address], [place], [address], [place] [facility] 12/12/2018 10:06:14 9 Endometrial [...] height Body mass index (BMI) Body weight Body temperature Heart rate Oxygen saturation Oxygen saturation in Arterial blood by Pulse oximetry Systolic blood pressure Diastolic blood pressure Provider Name and Address Organization Details Last Updated DateTime 5 170.18 cm 37 kg/m2 354308. 8 g 98.4 [degF] 90 /min 97 % 97 % 118 mm[Hg] 70 mm[Hg] Steffany Snow [facility] 5 14:12:16 Date Recorded Body height Body mass index (BMI) Body weight Heart rate Oxygen saturation Oxygen saturation in Arterial blood by Pulse oximetry Systolic blood pressure Diastolic blood pressure Provider Name and Address Organization Details Last Updated DateTime 5 170.18 cm 37 kg/m2 098053. 8 g 83 /min 96 % 96 % 124 mm[Hg] 78 mm[Hg] Steffany [facility] 5 11:49:29 Date Recorded Body height Body mass index (BMI) Body weight Heart rate Oxygen saturation Oxygen saturation in Arterial blood by Pulse oximetry Respiratory rate Systolic blood pressure Diastolic blood pressure Provider Name and Address Organization Details Last Updated DateTime 5 170.18 cm 38.4 kg/m2 954383. 83 g 80 /min 95 % 95 % 18 /min 140 mm[Hg] 90 mm[Hg] Ciera Rios [facility] 5 09:09:55 Date Recorded Body height Body mass index (BMI) Body weight Body temperature Heart rate Oxygen saturation Oxygen saturation in Arterial blood by Pulse oximetry Respiratory rate Systolic blood pressure Diastolic blood pressure Provider Name and Address Organization Details Last Updated DateTime 4 170.18 cm 34.6 kg/m2 044022. 91 g 97.7 [degF] 87 /min 98 % 98 % 18 /min 118 mm[Hg] 74 mm[Hg] Earlene Branham [facility] 4 10:08:21 Social History Question Answer Notes LastModified by Organizat ion Details LastModified Time Tobacco Smoking Status Current Every Day Smoker Earlene Branham ethan [facility] 10/25/2016 16:32:01 Able To Swim? Yes [...] Or The Highest Degree You Have Received? [id number] Information not available 12/13/2017 How Many Days [...] Live Alone Or With Others? With Others [email or web address] Information not available 06/17/2018 What Was The [...] Cancer N Hernia N Plantar Fasciitis N Lung Disease N Hypothyroidism N Defects or Inherited Disease N Breast Problem N Ovarian Cyst N Anesthesia Complications N Testosterone Deficiency N Interstitial Cystitis N Congenital Anomalies N Hypoglycemia N Blood clot N Vitamin D Deficiency N Cellulitis N Endometriosis N Fracture N Bladder or Kidney Problems N Schizophrenia N Panic Disorder N Concussion N Spina Bifida N Osteoarthritis N Parkinson's Disease N Disc Protrusion N STI N Esophagitis N Angina N Thyroid Problems N GI Problems N ADD/ADHD N Anemia N Multiple Sclerosis N Abnormal PAP N Lumbago N Mental Illness N Psychiatric Illness N Ovarian Cancer N Diabetes N Degenerative Disc Disease N Seizures/Epilepsy N Syncope N Insomnia N Hyperlipidemia N Eczema N Dementia N Attention Deficient Disorder N Abuse/Domestic Violence N Ulcerative colitis N Cerebrovascular Disease N Depression N Guillain-[place] N Sleep Apnea N Aneurysm N Heart Disease N Bronchitis N Suicidal Ideation N Pre-Eclampsia N Hypertension [...] SNOMED-CT Code Diagnosis ICD10 Code Diagnosis Note [id number] Cely Loyd APRN Counts Include 234 Beds At [facility] [address] [place] [address] 10/25/2016 16:10:23 10/25/2016 17:20:24 Chronic pansinusitis 90653689 J32.4 Parent-child problem 521 70180 Z62.505 [id number] MD Lm Negron [employer] [address] [place] [address] [place] [address] 12/13/2017 13:30:24 12/13/2017 14:51:06 Abnormal uterine bleeding 5404470684 9100 N93.9 [id number] Cely Loyd [address] [place] [address] 06/17/2018 08:40:15 06/17/2018 10:21:04 Nicotine dependence 81418028 F17.200 Body mass index 25-29 - overweight 570477588 Z68.27 Heel pain 3448043 M79.67 1 [id number] Anne Marie Metcalf MD [place] [employer] [address] [place] [address] [place] [address] 09/11/2018 11:03:45 09/11/2018 11:36:30 Postoperative visit 303474762 Z09 Body mass index 25-29 - overweight 175716415 Z68.28 Complex en dometrial hyperplasia 160554374 N85.00 [id number] Anne Marie Metcalf MD [place] [employer] [address] [place] [address] [place] [address] 12/12/2018 09:12:33 12/12/2018 09:57:00 Abnormal vaginal bleeding 900859073 N93.9 Cyst of Ba rtholin's gland duct 55242501 N75.0 Complex en dometrial hyperplasia 656410396 N85.00 [id number] Cely Loyd [address] [place] [address] 07/27/2019 14:24:45 07/27/2019 15:30:07 Upper respiratory infection 96829418 J06.9 [id number] Cely Loyd [address] [place] [address] 12/15/2019 09:23:14 12/15/2019 10:28:03 Acute upper respiratory infection 84062587 J06.9 [id number] Brad Flores MD [address] [place] [address] 09/05/2020 15:49:07 09/05/2020 16:21:44 Body mass index 30+ - obesity 098393053 Z68.32 Herpes zoster 5439541 B0 2.9 [id number] Ana Hodgson MD [address] [place] [address] 10/31/2021 13:42:33 10/31/2021 15:00:27 Tobacco user 504740176 Z72.0 Viral syndrome 557613803 B34.9 [id number] Ciera Simpson APRN [place] [address] [place] [address] 06/10/2024 09:51:03 06/10/2024 10:40:23 Nicotine dependence 13356917 F17.200 Body mass index 30+ - obesity 045477792 Z68.34 Obesity 164965738 E66.9 Mammogram declined 95556 5004 Z53.20 Screening for malignant neoplasm of colon 090298888 Z12.11 Screening for malignant neoplasm of cervix 559649906 Z12.4 Acute sinusitis 57222088 J01.90 Viral screening 92161218 4 Z11.52 negative [id number] Glynn Shin PA-C [place] [address] [place] [address] 01/15/2025 14:00:28 01/15/2025 14:46:10 Insect bite of upper limb 809418446 S40.261A W57.XXXA Discussed supportive care with patient. [...] signs and sxs to seek further treatment. [id number] Glynn Shin PA-C [address] [place] [address] 02/03/2025 11:32:52 02/03/2025 12:46:04 General examination of patient 659914492 Z00.00 Generally healthy and well developed individual presents for general exam with no acute complaints . Past medical history significan t for no contributi ng conditions . Discussed healthy diet and exercise. Health maintenmelodie e reveiwed with patient. Exercises education, guidance, and counseling 075440502 Z71.82 The patient was advised to continue a healthy diet and exercise regularly. Dietary ma kai surveillance 192461743 Z71.3 Tobacco de pendence caused by cigarettes 6622134071 8670291 F17.210 does not want to use medication s with side effectswil l trial NRT and stop smoking Screening mammography 24 469901 Z12.31 Screening for malignant neoplasm of colon 735557527 Z12.11 Insect bit e of upper limb 314124275 S40.261A W57.XXXA --improved Vitamin D deficiency 347 70638 E55.9 [id number] Kobi Healy APRN [address] [address] 03/18/2025 08:58:51 03/18/2025 09:59:07 Body mass index 30+ - obesity 397442895 Z68.38 38.4 Obesity 861674159 E66.9 Edema of l ower extremity 122610192 R60.0 if worsening or more symptoms go to ed Health Concerns Section Related Observation LastModified by Organization Detai ls LastModified Time None Recorded Concern Status LastModified by Organization Details LastModified Time None Recorded Advance Directives Directive None Recorded Payers Insurance Date Sequence Insurance Name Policy Number Policy Alves Covered Member ID Alves Member ID Guarantor Name 03/17/2025 [place] [employer] [place]MEDICAID) Rachel Grandaer [id number] Rachel Phipps 03/17/2025 1 [employer] [facility] (MEDICAID HMO) Rachel Grandaer [id number] Rachel Porter Toller 01/10/2017 1 UNSPECIFIED REMIT PAYOR Rachel Phipps Notes Date Note Type Note Provider Name and Address Organization Details Recorded Time 10/31/2021 text/html Pt went to [facility] yesterday tested neg covid . Pt c/o cough , sore throat ,h/a, fever, nausea , congestion , loss of smell due to congestion x 4 days. had fever to 101. 9, but not for 1-2 days drinking fine, decreased appetite Ana Hodgson MD [address], [place], [address], [facility] - [facility] 10/31/2021 14:45:13 06/10/2024 text/html Presents nasal drainage, non productive cough, chills, headaches, body aches, sore throat, sinus pressure, sneezing for past 4 daysNo feverDid take marcia selzerNo chest pain, shortness of breath, dizziness, lightheadedness, syncope, palpitations or edema.No known ill contactsSmoking 1 ppdDenies alcohol and illicit drug usage Ciera Simpson, MEDICAL ACCOUNTING CLERK [address], [place], [address], [facility] 06/10/2024 12:38:23 01/15/2025 text/html Patient presents to office with complaints of insect [...] or concerns reported. Glynn Shin PA-C [address], [place], [address], [facility] 01/15/2025 14:50:44 02/03/2025 text/html Patient presents to office for wellness visit. Patient denies any concerns this visit.labs:Please let patient know that labwork looks good with few exceptions;low vit D, would likely benefit from supplement and increased dietary [id number] 5.6, WNL Pt denies chest pain, SOA, difficulty eating or drinking, changes in bathroom habits, syncope/presyncope, or any other concerns. Health Maintenance:Flu:Covid :Tdap (Q10):Shingles (50+):Pneumonia (65+):Colon Cancer Screening (45+): open to Smoker: 1.5ppd, since 19yo, did quit for 7 years (55+ w/ >30pck yr hx) LDCT: open to Women's HealthPap smear:Mammogram (>40): dueDEXA scan (>65): LN:Patient presents [...] reported. Glynn Shin PA-C [address], [place], [address], [place] [facility] 02/03/2025 13:04:46 03/18/2025 text/html 54 yr old female presented for swelling of bilateral lower legs. She says they have been swelling for the last 2-3 weeks. She has gained 9lb in one month, denies soa. Kobi Healy APRN [address], [place], [address], [place] [facility] 03/18/2025 09:59:39 OBGyn Episode No OBEpisode recorded.
--- NOTE | 2025-03-24 07:55 | CA_ITS ---
APPROVED REPORT EXAM: Comprehensive 2D, Doppler, and color-flow Echocardiogram Pediatric Occupational Therapist: VISHNU Dye, RVS Ht: 5 ft 7 in Wt: 250lbs BSA: 2.22 BP: 140/90 mmHg Indications: Edema, HTN, Family hx-CHF 2D Dimensions Left Atrium 3.56 cm F: 2.7 - 3.8 LA Volume 29.70 mL LA Volume Index 13.771415 mL/m2 (M/F) 16-34 M-Mode Dimensions RVDd 2.28 cm (0.9-2.6) LA Diam 2.01 cm (1.9-4.0) LVDd 5.28 cm (3.5-5.7) LVDs 3.75 cm (3.5-5.7) IVSd 0.96 cm (0.6-1.1) PWd 1.00 cm (0.6-1.1) EF (Teich) 55.30% EPSs 1.70 cm FS 29.00% EDV (Teich) 134.20 mL TAPSE 1.92 (<1.7) ESV (Teich) 60.00 mL LV Diastology E Decel Time 210 (160-240 msec) E/A Ratio 1.00 MED A' 9.60 cm/s LAT A' 10.20 cm/s Aortic Valve YESENIA Index 1.30 cm2/m2 AoV Peak Maximiliano. 132.0 (50-130 cm/s) AO Peak GR. 7.00 mmHg AO Mean GR. 3.50 (<5 mmHg) AO VTI 29.5 (18-25 cm) EYSENIA (VTI) 2.96 (2.5-4.5 cm2) Mitral Valve MV A Velocity 80.0 (40-130 cm/s) E/A Ratio 1.00 Tricuspid Valve TR P. Velocity 201.00 cm/s RAP Estimate 10.00 mmHg RVSP 26.20 mmHg Left Ventricle The left ventricle is normal size. The left ventricular systolic function is normal. The left ventricular ejection fraction is within the normal range. There is increased LV wall thickness. There is normal LV segmental wall motion. The left ventricular diastolic function is normal. LVEF is 55%. Right Ventricle Right ventricle is mildly dilated. The right ventricular systolic function is normal. Atria The left atrium size is normal. The right atrium size is normal. There is no Doppler evidence of interatrial shunt. Aortic Valve The aortic valve is mildly thickened. There is no aortic valvular stenosis. No aortic regurgitation is present. Mitral Valve The mitral valve is normal in structure. No evidence of mitral valve stenosis. Trace mitral regurgitation. Tricuspid Valve Tricuspid valve is grossly normal in structure and function. Mild tricuspid regurgitation. RVSP is 20-25 mmHg. Pulmonic Valve The pulmonary valve is normal in structure. Trace pulmonic regurgitation. Great Vessels The aortic root is normal in size. IVC is normal in size and collapses >50% with inspiration. Pericardium There is no pericardial effusion. Other Information Study Quality: Technically Difficult Conclusion Technically difficult study due to poor acoustic windows. Normal biventricular systolic function. Mild RV dilation. Mild TR. Electronically signed by : Mara Lee MD 03/27/2025 00:46:06
== END 2025-03-24 23:59 | disposition home or self-care (01) ==
LOC: RT 07:52
PROVIDERS: Visit Provider Nurse Practitioner Family
DX: I07.1 Rheumatic tricuspid insufficiency (principal); I11.9 Hypertensive heart disease without heart failure; Z82.49 Family history of ischemic heart disease and other diseases of the circulatory system
CPT/HCPCS: 93306